=== PATIENT | male | born 1960 | race Caucasian/White ===

== ENCOUNTER 2025-06-08 08:41 | Outpatient (AMB) | payer OTHER, SELFPAY ==
--- NOTE | 2025-06-08 08:46 | A.OFFVIS_ITS ---
Intake Visit Reasons: 6m Allergies No Known Allergies Allergy (Verified 06/08/25 08:50) Medication List - Last Reconciled 06/08/25 by Mary Ann Arvizu CNP amlodipine 10 mg PO DAILY atorvastatin 20 mg PO DAILY lisinopril 10 mg PO DAILY rivaroxaban (Xarelto) 10 mg PO DAILY HPI Comments Details: He was doing okay. No new stroke-like or TIA symptoms. BP was okay. Left leg numbness was unchanged. No falls. Mild left hand tremor was unchanged, no functional impairment. No significant neck pain. Brain fog is the same. Sleep was okay. Was having some neck pain with pain down LUE for few weeks with intermittent numbness/tingling that improved with prednisone.?No specific trigger. No weakness. States previous cervical imaging showed arthritis. Has constant soreness in neck which he is able to manage with 1 Tylenol PM.? On 09/17/21 he had sudden onset of loss of use of the left hand and slight left leg weakness went to [facility] and was admitted and found to have a new acute stroke in the right posterior espinoza radiata to the posterior insula and the right frontal and the parietal operculum. There was the old area of encephalomalacia in the left frontal region from the 2020 stroke and an intermediate stroke also with encephalomalacia in the right temporoparietal area. All of these suggest that these are embolic. They've reviewed his LINC and found no evidence of atrial fibrillation. They have added to clopidogrel to his aspirin. He had a ROBERTO which showed a history of aneurysm but and was negative for a PFO or ASD on the bubble study. Physically feels fine except for slight left leg numbness.Has a brain fog and slight Memory retrieval issues. Loses train of thought. Done with Speech therapy. Drives except for long trips . Previous stroke with a sudden onset of feeling odd and not being able to talk on 01/05/20 while at work. He was taken to [facility] where he was fo und to have a slight right facial droop and dysphagia. CAT scan was negative and he was given TPA. He improved promptly. Subsequent MRI showed a sizable acute infarct in the left inferior frontal gyrus, temporal lobe and the parietal area on the left side and an MRA that showed occlusion of the left M2 branch. Intervention was not necessary as his symptoms resolved and he was discharged 2 days later. He feels he is not 100% back to normal, still has trouble processing his thoughts and getting words out. He has no weakness or numbness. There is no previous history of stroke. He had an echocardiogram with bubble study which was negative. A 48-hour Holter monitor was done, however, 1st degree AV block , but no A fib. He has no evidence of sleep apnea. [facility] Medical History (Updated 06/08/25 @ 08:50 by Mary Ann Arvizu CNP) Cervical radiculopathy Hypertriglyceridemia Hypertension COPD (chronic obstructive pulmonary disease) Review of Systems Const Denies chills, Denies daytime sleepiness, Denies difficulty sleeping, Reports fatigue, Denies fever(s), Denies frequent falls, Denies headache(s), Denies increased appetite, Denies poor appetite, Denies snoring, Denies weakness, Denies weight gain and Denies weight loss Eyes Denies loss of vision ENT Denies vertigo, Denies dizziness, Denies headache(s) and Denies neck pain Card Denies chest pain at rest, Denies chest pain with activity, Denies syncope, Denies leg edema, Denies palpitations, Denies dyspnea and Denies dyspnea on exertion Resp Denies cough, Denies dyspnea, Denies dyspnea on exertion and Denies snoring GI Denies abdominal pain, Denies constipation, Denies heartburn, Denies diarrhea and Denies nausea Denies urinary frequency, Denies urinary incontinence and Denies urinary urgency Musc Denies abnormal gait, Denies back pain, Denies myalgias, Denies arthralgias, Denies neck pain, Reports numbness and Denies tingling Neuro Denies abnormal gait, Denies vertigo, Denies dizziness, Denies syncope, Denies frequent falls, Denies headache(s), Denies lack of coordination, Denies loss of vision, Reports memory loss, Reports numbness, Denies Other visual disturbances, Denies restless legs, Denies seizure-like activity, Denies tingling, Denies paresthesias, Reports tremor(s) and Denies weakness Psych Denies anxiety, Denies depression, Denies auditory hallucinations, Reports memory loss and Denies visual hallucinations Endo Reports fatigue and Denies palpitations Physical Exam Const Other: General Appearance:? normal, in no acute distress. Heart:? S1, S2 normal, no murmurs. Lungs:? clear anteriorly and posteriorly. Musculoskeletal:? normal. Extremities:? no edema. Psych:? alert, oriented, cognitive function intact, cooperative with exam. Neuro Other: Abnormal Neurological Findings:?Very slight left hand tremor on sustained posture that increases on FTN. Mental Status: alert and oriented X 3. Normal attention, orientation, memory, and affect. Cranial Nerves: Pupils are equal, round, and reactive to light. External ocular muscles are intact. Visual sanchez are full, no ptosis. Face is symmetrical, no facial weakness or droop. Facial sensations are normal. Tongue protrudes in midline. Palate elevates symmetrically. Shoulder shrugging is normal Motor Examination: Normal muscle tone, bulk and strength. No atrophy or fasciculations. No drift of the extended upper extremities. DTR 2+. Plantars are flexor. Sensory Exam: Normal light touch, temperature, pinprick, vibration, and joint- position sensations. Rhomberg sign is absent. Coordination: No ataxia. No titubation. Gait Exam: Within normal limits. Cerebellar Signs: [id number] with mild tremor on left. Extrapyramidal System: Tremor as above. No rigidity with normal facial expressions. No bradykinesia. No bradyphrenia. Normal arm swing and posture. No propulsion or retropulsion. Speech: Normal. No word searching difficulties. Assessment & Plan Assessment & Plan (1) History of stroke: Code(s): Z86.73 - Personal history of transient ischemic attack (TIA), and cerebral infarction without residual deficits Category: Medical Plan: Continue Xarelto 10mg 1 tablet daily. Continue statin, control blood pressure. Medications: New rivaroxaban (Xarelto) 10 mg PO DAILY 90 tabs 1RF 90 days Coding Level of Care Code Est Pt Level 4 (17015) Diagnoses History of stroke Z86.73
== END 2025-06-08 08:56 | disposition home or self-care (01) ==
PROVIDERS: PCP Student in an Organized Health Care Education/Training Program; Referring Provider Internal Medicine; Visit Provider Registered Nurse
DX: Z86.73 Personal history of transient ischemic attack (TIA), and cerebral infarction without residual deficits (principal)
CPT/HCPCS: 99214